=== PATIENT | female | born 1960 | race Caucasian/White ===

== ENCOUNTER → 2023-05-29 08:32 | Outpatient (REF) | payer BC, SELFPAY | LOC: RAD 08:32 | PROVIDERS: ATTENDING PHYSICIAN Internal Medicine Cardiovascular Disease; FAMILY PHYSICIAN Physician Assistant Medical | DX: R06.09 Other forms of dyspnea (principal); R94.31 Abnormal electrocardiogram [ECG] [EKG] | CPT/HCPCS: 76770 ==

== ENCOUNTER → 2023-05-30 07:56 | Outpatient (REF) | payer BC, SELFPAY | LOC: RAD 07:56 | PROVIDERS: ATTENDING PHYSICIAN Internal Medicine Cardiovascular Disease; FAMILY PHYSICIAN Physician Assistant Medical | DX: R06.09 Other forms of dyspnea (principal); R94.31 Abnormal electrocardiogram [ECG] [EKG]; N20.1 Calculus of ureter; I70.1 Atherosclerosis of renal artery | CPT/HCPCS: 93975 ==

== ENCOUNTER 2023-08-31 04:48 | Inpatient (IN) | payer BC, SELFPAY ==
[2023-08-30 15:12] VITALS: BP 174/84
[2023-08-30 15:43] LABS: % Basophils 1.2 % (0-2); % Immature Granulocytes 0.3 % (0-0.5); % Lymphocytes 22.5 % (20.5-51.1); % Monocytes 7.5 % (1.7-9.3); % Neutrophils 68.5 % (42.2-75.2); Absolute Basophils 0.1 10^3/uL (0-0.2); Absolute Lymphocytes 1.4 10^3/uL (1.2-3.4); Absolute Monocytes 0.5 10^3/uL (0.1-0.6); Absolute Neutrophils 4.1 10^3/uL (1.4-6.5); Hematocrit 38.3 % (37.0-47.0); Hemoglobin 13.3 g/dL (12.0-16.0); Mean Corp Hgb Conc. 34.7 g/dL (33.0-37.0); Mean Corpuscular Hgb 29.4 pg (27.0-31.0); Mean Corpuscular Volume 84.7 fL (81.0-99.0); Mean Platelet Volume 9.8 fL (7.4-10.4); Nucleated Red Blood Cells % 0 %; Platelet Count 288 10^3/uL (130-400); Red Blood Cell Count 4.52 10^6/uL (4.20-5.40); Red Cell Dist. Width 12.7 % (11.5-14.5)
[2023-08-30 15:48] LABS: INR 1.05; PT 13.8 Sec (11.4-14.6)
[2023-08-30 15:49] LABS: APTT 27.9 Sec (23.4-35.0)
[2023-08-30 15:58] LABS: ALT (SGPT) 23 U/L (0-35); AST (SGOT) 26 U/L (14-36); Albumin 4.6 g/dl (3.5-5.0); Alkaline Phosphatase 105 U/L (38-126); Blood Urea Nitrogen 18 mg/dl (7-17); Calcium 10.3 mg/dl (8.4-10.2); Carbon Dioxide 23 mmol/L (22-30); Chloride 107 mmol/L (98-107); Glucose 148 mg/dl (70-99); Potassium 4.3 mmol/L (3.5-5.1); Sodium 140 mmol/L (135-145); Total Bilirubin 0.5 mg/dl (0.2-1.3); eGFR > 60.00
--- NOTE | 2023-08-30 21:03 | ED.GENMED ---
History of Present Illness
General
Chief Complaint: Visual Problem
Source: patient
Time Seen by Provider: 08/30/23 20:46
Travel History
Have you had any contact with someone who has COVID-19?: No
Do you have any symptoms of coronavirus? Fever > 100 degrees, chills, cough, shortness of breath, sore throat, loss of taste or smell, muscle aches, or headache?: No
History of Present Illness
History of Present Illness:
63-year-old female presents to the emergency room after being seen by her coordinate measuring equipment operator. Patient went to the coordinate measuring equipment operator because she has noticed some visual changes over the past week. She feels like she was having difficulty walking
seemingly because she was not saying everything normally. In particular she noticed things would pop up into her send vision without seeing them, up from her left side. When symptoms began she did note perhaps some paresthesias of her left lower
extremity but this is gone. She denies headache. She denies any focal weakness. Her speech is normal. Principal Network Architect at Dr. Lay's office noted a left homonymous hemianopsia. Patient states that 5 months ago she was diagnosed with hypertension.
Controlling her blood pressure to be difficult but she states she is currently on 5 medications.
Past History
Past History
ED Past Medical History: Other (Kidney stone)
ED Past Surgical History: Other (Hernia repair)
Social History
Tobacco: Non-smoker
Alcohol: Occasional
Personal:
Living: with family
Family History
Family History: Unable to obtain
Phy Exam
Physical Exam
Physical Exam:
General: Awake, Alert, Oriented X3. No acute distress.
Vitals: unremarkable
Head: Atraumatic
Eyes: Pupils equal, EOMI, left hemianopsia
Throat: Airway intact, no exudates
Neck: Trachea midline
Lungs: Clear and equal b/l
Heart: Regular rate, no murmurs
Abd: Soft, Nontender, No pulsatile mass
Neuro: No facial droop, speech is clear and fluent, muscle strength equal bilaterally, cerebellar exam normal
Skin: Warm, dry, no rash
Extremities: pulses equal b/l, no edema
Course
Orders/Labs/Results
Orders:
Orders
08/30/23 15:18
CT Head W/o Iv Contrast Urgent
Comment:
Reason For Exam: Visual disturbance
08/30/23 15:25
Complete Blood Count/With Diff Urgent
Comprehensive Metabolic Panel Urgent
PTT Urgent
Prothrombin Time Urgent
08/30/23 21:02
EKG [Electrocardiogram (*1)] Urgent
Reason for Study: Vertigo / Dizzy
08/30/23 21:03
EKG- Treatment ONCE
Abnormal Lab Results
08/30/23
15:25
BUN 18 H mg/dl
(7-17)
Glucose 148 H mg/dl
(70-99)
Calcium 10.3 H mg/dl
(8.4-10.2)
08/30/23 15:25
08/30/23 15:25
Vital Signs
Initial and Last Documented VS:
Initial Vital Signs
Temp Pulse Resp BP Pulse Ox
98.6 F 98 20 174/84 96
08/30/23 15:12 08/30/23 15:12 08/30/23 15:12 08/30/23 15:12 08/30/23 15:12
Last Documented Vital Signs
Temp Pulse Resp BP Pulse Ox
98.6 F 80 16 117/65 94
08/30/23 15:12 08/31/23 01:00 08/30/23 23:54 08/31/23 01:00 08/31/23 01:00
MDM/Problems Addressed
Differential Diagnosis Includes:
CVA, mass, AVM
MDM/Problems Addressed:
Patient presents with sudden onset. No other neurologic deficits noted at this time. CT shows an abnormality which will require further evaluation. Discussed findings of CT with neurology who recommends treating patient simply with aspirin at
this time. Further treatment will be based upon MRI which can be obtained tomorrow.
Chronic conditions affecting care: HTN
*Radiology
Radiology exam reviewed: radiology read reviewed
*Pulse Oximetry
Patient hypoxic: no
*EKG
Interpreted by ED Provider?: Yes
Interpretation: normal
Heart Rate: 85
Rate: normal
Rhythm: sinus
[place]: normal axis
Interval: normal interval
QRS Pattern: normal QRS
Ischemia: no ischemia
*Furniture Servicer Interpretation
Rate: normal
Interpretation: normal
Heart Rate: 85
Rhythm: sinus
*Critical Care Note
Total Time (30-74mins, 75-104mins- exclusive of procedures): Not Applicable
ED Attending Note
-
Portions of this chart may have been created with voice recognition software.� Occasional wrong word or��sound alike� substitutions may have occurred due to the inherent limitations of voice recognition software.
Discharge Plan
Departure
Patient Disposition: Admit
Date of Disposition: 08/30/23
Time of Disposition: 22:03
Admit to: Telemetry
Presentation/result/management discussed w/ accepting MD/DO: Hospitalist
Condition: Fair
Discharge Problem:
Left homonymous hemianopsia
Prescriptions:
No Action
amlodipine 5 mg tablet
2.5 mg PO DAILY
spironolactone 25 mg tablet
25 mg PO DAILY
sertraline 25 mg tablet
25 mg PO HS
olmesartan 20 mg tablet
20 mg PO DAILY
nebivolol 5 mg tablet
5 mg PO DAILY
aspirin 325 mg Tablet
325 mg PO Q48H
loratadine [Claritin] 10 mg Tablet
10 mg PO HS
Referrals:
Filomena Nolasco PA [Family Provider] -
Interventions
Interventions:
*Risk Screen - Suicide Last Done: 08/30/23 21:04
*General Assessment Last Done: 08/30/23 21:04
*Neglect/Abuse Screening Last Done: 08/30/23 21:52
ED- Fall Risk Assessment Last Done: 08/30/23 23:58
*ED COVID-19 Vaccine History Last Done: 08/30/23 23:45
ED- Neurological Assessment Last Done: 08/30/23 23:58
ED-EENT Assessment Last Done: 08/30/23 21:03
ED Swallowing Screen Last Done: 08/30/23 21:03
Discharge Date and Time
Print Language: [place]
[2023-08-30 22:25] VITALS: BP 178/91
[2023-08-30 22:48] VITALS: BMI 28.2
[2023-08-30 23:54] VITALS: BP 168/88
[2023-08-31] VITALS (16 sets, daily range): BP systolic 116–171; BP diastolic 64–101; PULSE 72–84; BMI 28.1
--- NOTE | 2023-08-31 00:02 | EDRN ---
Pt has had trouble with her vision x 1 week that has remained constant. Pt says sometimes she gets up and fees 'off balance'. Pt noted occasional tingling around her lips but says that is gone now. Pt saw her collect on delivery clerk and was told to decrease
amlodipine from 5mg daily to 2.5mg daily. Pt noted her bp was in the low 100's at home so she did not take her amlodipine at all for 2 days and took first dose of 2.5 mg , 08/29. Pt went to artificial flowers supervisor for evaluation of persistent visual
change and was sent to the ED. Pt says when she walks with her friends, she noticed someone would 'suddenly appear' in L peripheral vision - she would not see the person until they were almost in front of her. Pt denies headache, speech
disturbance, cp, sob, abd pain, n/v, fever/cough/chills, photophobia.
--- NOTE | 2023-08-31 04:12 | HPS.HSE ---
Family Physician
-
Family Physician: Filomena Nolasco
Chief Complaint
-
Vision change
History of Present Illness
Patient is a 63y F with PMH significant for hypertension who presents to ED complaining of vision changes. Patient states that she initially noted some issues about one week ago. She felt that her vision was subtly changed as if her depth
perception were 'off' or something similar. She had no spots, dots, floaters, etc. She then noted that she would be 'surprised' by objects on her left that seemed to appear suddenly. She had perhaps some mild /intermittent tingling in the L foot.
No other numbness, tingling, focal weakness, ataxia, etc.
No headache. No prior history of similar symptoms.
Patient was seen by Optometry today given her persistent symptoms and was noted to have L homonymous hemianopsia on exam. She was referred to the ED for further evaluation.
Patient is on multiple medications for [id number] hypertension. She takes a full-dose ASA [id number] for arthritis pain.
Patient reports a recent trip to [place], etc - returned to [place] August 08.
Medical History
Past Medical History
Past Medical History: Reports Other
Additional Past Medical History:
Hypertension
Osteoarthritis
Anxiety / Depression
Past Surgical History: Reports Other
Additional Past Surgical History:
Bilateral Inguinal Herniorrhaphies
Lithotripsy
Social History
Tobacco: Non-smoker
Alcohol: Occasional
Drug: None
Family History
Family History: Other (Father: AAA Mother: PBC)
Allergies / Home Medications
Allergies reflects when Allergies were last updated in [employer].
Home Medications with original date entered in [employer]
Allergy/Medication List:
Allergies
Allergy/AdvReac Type Severity Reaction Status Date / Time
Sulfa (Sulfonamide Allergy HIVES,ITCHY Verified 08/30/23 15:15
Antibiotics) RASH
sulfamethoxazole Allergy Rash Verified 08/30/23 15:15
trimethoprim Allergy Rash Verified 08/30/23 15:15
hayfever Allergy stuffy Uncoded 08/30/23 15:15
nose,itchy
eyes
Home Medications
amlodipine 5 mg tablet 2.5 mg PO DAILY 08/30/23
aspirin 325 mg tablet 325 mg PO Q48H 08/30/23
loratadine 10 mg tablet (Claritin) 10 mg PO HS 08/30/23
nebivolol 5 mg tablet 5 mg PO DAILY 08/30/23
olmesartan 20 mg tablet 20 mg PO DAILY 08/30/23
sertraline 25 mg tablet 25 mg PO HS 08/30/23
spironolactone 25 mg tablet 25 mg PO DAILY 08/30/23
Review of Systems
-
History Source: Patient
A 12 point ROS was completed and negative except as noted: Yes
Constitutional: Denies Fever, Fatigue or Chills
EENT: Denies Sore Throat
Respiratory: Denies Cough or Trouble Breathing
Cardiac: Denies Chest Pain or Palpitations
Abdomen/GI: Denies Abdominal Pain, Nausea, Vomiting or Diarrhea
: Denies Dysuria or Frequency
Musculoskeletal: Denies Joint Pain or Edema
Neurological: Reports Numbness and Other (Vision changes); Denies Dizzy, Headache or Weakness
Psych: Denies Depression or Anxiety
Physical Exam
Vital Signs
Vital Signs
Temp Pulse Resp BP Pulse Ox
98.6 F 74 16 131/64 92
08/30/23 15:12 08/31/23 03:00 08/30/23 23:54 08/31/23 03:00 08/31/23 03:00
Physical Exam
General: Other (63y F in no acute distress.)
HEENT: Moist mucous membranes and PERRLA
Respiratory: Clear; No Wheezes, Rales or Rhonchi
Cardiac: S1/S2 and Regular Rhythm; No Murmur
GI: Soft, Non Tender, Non Distended and Normal Bowel Sounds
Musculoskeletal: No Clubbing, No Cyanosis and No Edema
Neuro: AO x 3 and Other (Far L visual field deficit. No other evident abnormalities. Strength equal and symmetric. Sensation otherwise intact.)
Laboratory Results
-
08/30/23 15:25
08/30/23 15:
Laboratory Results
PT 13.8 Sec (11.4-14.6) 08/30/23 15:
INR 1.05 08/30/23:
APTT 27.9 Sec (23.4-35.0) 08/30/23:
Total Bilirubin 0.5 mg/dl (0.2-1.3) 08/30/23:
AST 26 U/L (14-36) 08/30/23:
ALT 23 U/L (0-35) 08/30/23 15:
Alkaline Phosphatase 105 U/L (38-126) 08/30/23 15:25
Impression/Plan
-
A/P: Patient is a 63y F with PMH significant for hypertension who presents to ED complaining of vision changes x 1 week.
Left Homonymous Hemianopsia
CVA
- Admit for further evaluation and treatment.
- CT scan with abnormality in the R occipital region - consistent with L vision deficit.
- ASA + Plavix for now.
- Check AM lipids.
- Monitor for any changes in neuro exam - though current event seems to have occurred a week or so ago.
- MRI in AM for further evaluation.
- Neuro evaluation for additional recommendations.
Hypertension
- Stable at present. Continue current outpatient regimen and adjust as needed.
Anxiety / Depression
- Stable. Continue sertraline.
DVT Prophylaxis: Subcut Heparin
Code Status: Full
[2023-08-31 05:17] LABS: Hemoglobin 12.7 g/dL (12.0-16.0); Mean Corp Hgb Conc. 35.3 g/dL (33.0-37.0); Mean Corpuscular Hgb 30.1 pg (27.0-31.0); Mean Corpuscular Volume 85.3 fL (81.0-99.0); Mean Platelet Volume 9.7 fL (7.4-10.4); Platelet Count 248 10^3/uL (130-400); Red Blood Cell Count 4.22 10^6/uL (4.20-5.40); Red Cell Dist. Width 12.8 % (11.5-14.5)
[2023-08-31 05:53] LABS: Blood Urea Nitrogen 22 mg/dl (7-17); Calcium 9.9 mg/dl (8.4-10.2); Carbon Dioxide 23 mmol/L (22-30); Chloride 109 mmol/L (98-107); Estimated Creatinine Clearance 83 ml/min; Glucose 109 mg/dl (70-99); HDL Cholesterol 50 mg/dl; LDL Cholesterol, Calculated 90 mg/dl; Potassium 4.2 mmol/L (3.5-5.1); Sodium 140 mmol/L (135-145); Total Cholesterol 203 mg/dl (50-199); Triglyceride 315 mg/dl (10-149); Very Low Density Lipoprotein 63 mg/dl (0-30); eGFR > 60.00
[2023-08-31 06:32] LABS: TSH Reflex To Free T4 4.15 uIU/ml (0.47-4.68)
--- NOTE | 2023-08-31 08:02 | CON.NEURO4 ---
Addendum entered and electronically signed by Luis Enrique Ruano MD 08/31/23 11:32:
I saw and evaluate the patient I reviewed note by Tess Keita agree the findings the following comments:
The patient is a 63-year-old right-handed woman with a past medical history of essential hypertension, nephrolithiasis who presents to the hospital after being referred by java j2ee lead due to finding of right-sided visual field deficits. Patient
reports that around 1 week ago she noticed that 1 day her vision seemed to be not normal and she seemed to be missing objects on her left visual hemifield. She did not have any speech difficulty or unusual headaches did possibly note some heaviness
of the left foot. No recent head or neck trauma. No history of TIA or stroke, takes full dose aspirin since April 2023 due to concerns for risk for stroke as well as hypertension.
She reports that maternal and paternal grandparents of stroke in the 50s age range.
Secondhand smoke exposure as a child but never smoker herself occasional social alcohol, she is retired and lives with her .
Neurologic examination remarkable for subtle left-sided superior quadrant tropia, otherwise no neurologic deficits.
CT head noncontrast shows small amount of hypodensity in the right occipital lobe near the right lateral ventricle no hemorrhage.
Assessment: Suspect right sided occipital ischemic stroke given appears sudden onset, family history as well as history of essential hypertension. Neoplasm would also be in the differential diagnosis as CT head would not be sensitive enough to
differentiate these 2 pathologies.
Recommendations
-Continue DAPT therapy, duration will depend on vessel imaging of the head
-Goal normotension
-Neurologic checks and NIH stroke scale
-Lipid panel and hemoglobin A1c
-Check transthoracic echocardiogram given a new neurologic event monitor on cardiac telemetry
-Physical occupational speech therapy evaluations
-DVT prophylaxis
-MRI of the brain with and without contrast, MRA of the head without contrast, MRI of the neck with contrast
Will follow
Original Note:
Documented by User: Tess Dixon NP 08/31/23 10:34
Consultation - Neurology 4
-
CONSULTING PHYSICIAN: Harley Ruano MD
REFERRING PHYSICIAN: Hospitalists/Dr. Hernandez
DICTATED BY: JUANCARLOS Leroy
DATE/TIME OF REQUEST: 08/31/23
DATE/TIME OF CONSULTATION: 08/31/23
Reason for Consultation: CVA
History of Present Illness:
This is a 63-year-old right-handed female who has presented to the hospital on 08/30/23 by referral of her bridges and buildings supervisor with report of a left field cut. Patient reports a recently diagnosis of HTN that has been challenging to control. She first noted
an elevated blood pressure reading of systolic around 169 about one year ago at a gynecology appointment. She was diagnosed with HTN in April 2023 and is now on 4 different blood pressure medications and is followed by Cardiology who did a
complete workup and diagnosed her with essential hypertension. She went on a 6 week trip to [facility], [facility], [facility], and ended in [place] to see the [facility]. She reports having a mild cold towards the end of her vacation in early
July, she did not take a covid test.
About one week ago (08/24/23), patient notes that she woke up one morning and noticed that her depth perception suddenly seemed off. She walks frequently and would notice that people would appear suddenly on her left side, she hadn't noticed them
there. She also notes two instances of feeling that her left foot felt like it was heavy/dragging and one evening she had transient whole mouth lip tingling. Four days ago on 08/27/23 she called Cardiology reporting that she was feeling 'unsteady'
and her amlodipine dosage was decreased from 5mg to 2.5mg. Her symptoms did not improve after this change so she called her ophthalmology office and was evaluated by an bridges and buildings supervisor yesterday (08/30/23), who noted a left-sided field cut and referred
her to the ER. CT Head was obtained on arrival to the ER and demonstrates an attenuation in her right lateral ventricle near her right occipital lobe that is concerning for stroke vs mass. She was not a candidate for TNK/IAT due to outside of time
window. She denies any headache, dizziness, vision changes, speech/swallow difficulty, nausea, chest pain, palpitations, and shortness of breath. She has been taking a full dose aspirin since April 2023 because she was worried about stroke and it
seemed to alleviate her arthritis pain. She denies any history of TIA, stroke, or events similar to this in the past.
Past Medical History: HTN, kidney stone, arthritis, PVCs, fatty liver, anxiety
Surgical History: b/l inguinal hernia repair, lithotripsy
Family History: Maternal and Paternal grandfather- of stroke at 50. Paternal grandmother- stroke age 70. Father- stroke after AAA repair, Afib.
Social History: Former second-hand smoke exposure but was never a smoker herself. Occasional alcohol. Denies illicit drug use. 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
Allergies: Sulfa, trimethoprim, hayfever.
Home Medications: See below.
Review of Symptoms:
Patient denies any fever, headache, chest pain, shortness of breath, GI or symptoms.
�Per the HPI.�All systems are reviewed negative except above.
Physical Exam:
The patient is afebrile, abdomen is nondistended, breathing is unlabored, skin is warm and dry, no edema.
NIH Stroke Scale:
I performed the NIH stroke scale on the patient on 08/31/23 at 0830. The patient scored 1 points on the NIH stroke scale assessment, which were assigned as follows: See below.
Neurologic Examination:
The patient is awake, alert and oriented x 3. She is able to follow commands and answer questions appropriately. There is no aphasia or dysarthria. On cranial nerve assessment, pupils are 3 mm bilateral, round and reactive to light and
accommodation. Visual fraire are mildly reduced in bilateral LUQ. Extraocular movements are intact. Facial sensations are intact and bilaterally symmetrical, there is no facial asymmetry. Hearing is intact bilaterally to normal conversation volume.
Tongue palate and uvula are midline. Sternocleidomastoid strengths are full bilaterally. Motor strengths are 5/5 bilateral upper and lower extremities on medical research [place] scale. There is no drift or involuntary movement noted. Deep tendon
reflexes are 2+ bilateral upper and lower extremities and Babinski is absent bilaterally. Sensations of touch, temperature and vibration are intact and bilaterally symmetrical. There was no extinction noted on double simultaneous stimulation.
Coordination is intact by finger to nose bilaterally.
Lab Results: See below.
Neuro Imaging:
1. CT Head 08/30/23: No acute intracranial hemorrhage or mass effect. Small, 6 mm focus of white matter diminished attenuation adjacent to the posterior margin of the right lateral ventricle in the occipital region, possibly associated with minor
adjacent subtle confluent white matter edema. Exact etiology uncertain. Further evaluation/characterization would be recommended with nonemergent follow-up MRI. High attenuation likely chronic inspissated secretions in the left frontal and anterior
ethmoid air cells. Posterior left ethmoid air cell opacification.
Differentials for the patient's presentation include:
1. Subacute right occipital ischemic stroke likely producing LUQ field cut.
2. Brain mass possible but less likely.
3. HTN
4. Prediabetes
Patient has the following risk factors for their symptoms: HTN, family history of stroke
IV Tenecteplase/IAT candidacy: She is not a candidate for TNK/IAT due to outside of time window.
Recommendations:
-Continue DAPT with aspirin 81mg and Plavix 75mg x21 days. After 21 days, will discontinue Plavix and continue aspirin 81mg daily only.
-MRI brain w/and w/o contrast ordered/pending.
-MRA head/neck ordered/pending.
-Monitor on telemetry. TTE ordered/pending.
-Goal normotension.
-LDL goal <70 if MRI brain demonstrates a stroke. LDL is 90.
-Goal normoglycemia, hbA1c is 6.0.
-PT/OT/ST evaluations.
-DVT prophylaxis.
-Will need clearance from ophthalmology to return to driving.
-Will follow pending results.
Discussed patient care with: Dr. Ruano, the patient
Vital Signs and Labs
-
Vital Signs and Labs:
Vital Signs
Temp Pulse Resp BP Pulse Ox
98.1 F 80 14 141/90 96
08/31/23 08:57 08/31/23 09:17 08/31/23 09:00 08/31/23 09:17 08/31/23 09:00
Lab Results
08/31/23 05:01
08/31/23 05:01
PT 13.8 Sec (11.4-14.6) 08/30/23 15:25
INR 1.05 08/30/23 15:25
APTT 27.9 Sec (23.4-35.0) 08/30/23 15:25
Sodium 140 mmol/L (135-145) 08/31/23 05:01
Potassium 4.2 mmol/L (3.5-5.1) 08/31/23 05:01
BUN 22 mg/dl (7-17) H 08/31/23 05:01
Glucose 109 mg/dl (70-99) H 08/31/23 05:01
Calcium 9.9 mg/dl (8.4-10.2) 08/31/23 05:01
LDL Cholesterol, Calc 90 mg/dl 08/31/23 05:01
Medications
-
Active Medications
Generic Name Dose Route Start Last Admin
Trade Name Freq PRN Reason Stop Dose Admin
Acetaminophen 650 mg 08/31/23 04:52
Acetaminophen 325 Mg Tablet PO 09/28/23 04:51
Q4HPRN PRN
mild pain/SILVERIO/temp> 100.4F
Amlodipine Besylate 2.5 mg 08/31/23 08:00 08/31/23 09:17
Amlodipine 5 Mg Tablet PO 09/28/23 07:59 2.5 mg
DAILY SARAVANAN Administration
Aspirin 81 mg 08/31/23 08:00 08/31/23 09:17
Aspirin 81 Mg Chewable Tablet PO 09/28/23 07:59 81 mg
DAILY SARAVANAN Administration
Clopidogrel Bisulfate 75 mg 08/31/23 08:00 08/31/23 09:18
Clopidogrel 75 Mg Tablet PO 09/28/23 07:59 75 mg
DAILY SARAVANAN Administration
Heparin Sodium 5,000 units 08/31/23 08:00 08/31/23 09:17
Heparin 5,000 Units/Ml 1 Ml Vial SC 09/28/23 07:59 5,000 units
Q8 SARAVANAN Administration
Hydralazine HCl 5 mg 08/31/23 04:52
Hydralazine 20 Mg/Ml Vial IV 09/28/23 04:51
Q6HPRN PRN
SBP > 180
Lorazepam 0.5 mg 08/31/23 08:34
Lorazepam 2 Mg/Ml Vial IV 08/31/23 18:00
PRN PRN
FOR MRI
Nebivolol 5 mg 08/31/23 08:00
Nebivolol Hcl 2.5 Mg Tablet PO 09/28/23 07:59
DAILY SARAVANAN
Olmesartan 20 mg 08/31/23 08:00
Olmesartan 20 Mg Tablet PO 09/28/23 07:59
DAILY SARAVANAN
Sertraline HCl 25 mg 08/31/23 22:00
Sertraline 25 Mg Tablet PO 09/28/23 21:59
HS SARAVANAN
Sodium Chloride 0 flush 08/31/23 05:00
Sodium Chloride 0.9% (Flush) Syringe IV 09/28/23 04:59
PER PROTOCOL SARAVANAN
Sodium Chloride 0.25 ml 08/31/23 08:44
Nss (Pf) 10 Ml Vial For Ativan 0.5 Mg Dose IV 08/31/23 18:00
PRN PRN
IV LORAZEPAM DILUTION
Spironolactone 25 mg 08/31/23 08:00 08/31/23 09:16
Spironolactone 25 Mg Tablet PO 09/28/23 07:59 25 mg
DAILY SARAVANAN Administration
Home Medications
�Medication �Instructions �Recorded
amlodipine 5 mg tablet 2.5 mg PO DAILY 08/30/23
aspirin 325 mg tablet 325 mg PO Q48H 08/30/23
loratadine 10 mg tablet (Claritin) 10 mg PO HS 08/30/23
nebivolol 5 mg tablet 5 mg PO DAILY 08/30/23
olmesartan 20 mg tablet 20 mg PO DAILY 08/30/23
sertraline 25 mg tablet 25 mg PO HS 08/30/23
spironolactone 25 mg tablet 25 mg PO DAILY 08/30/23
NIH Stroke Score
Subsequent NIH Scale
Date of Subsequent NIH Scale: 08/31/23
Time of Subsequent NIH Scale: 08:30
NIH Stroke Score
Level of Consciousness: 0 - Alert
LOC Questions: 0-Answers both correctly
LOC Commands: 0-Performs both correctly
Best Horizontal Gaze: 0-Normal
Visual Fraire: 1=Partial hemianopia
Facial Palsy: 0=Normal, symmetrical
Motor - Right Arm: 0=No drift 10 seconds
Motor - Left Arm: 0=No drift 10 seconds
Motor - Right Le-No drift 5 seconds
Motor - Left Le-No drift 5 seconds
Limb Ataxia: 0-Absent
Sensation: 0-Normal
Best Language: 0-No aphasia
Dysarthria: 0-Normal
Extinction and Inattention: 0-No abnormality
Total Score:: 1
Modified Ord (mRS) Score
Modified Ord Scale (mRS): No significant disability. Able to carry out usual activities.
Score: 1

Documented by User: Luis Enrique Ruano MD 08/31/23 11:29
NIH Stroke Score
NIH Stroke Score
Total Score:: 1
Modified Ord (mRS) Score
Score: 1
[2023-08-31] MEDS: ALDACTONE 25 MG PO (09:16)
[2023-08-31] MEDS: HEPARIN 5000 UNITS SC ×3 (09:17→23:00)
[2023-08-31] MEDS: LOW STRENGTH ASPIRIN 81 MG PO (09:17)
[2023-08-31] MEDS: NORVASC 2.5 MG PO (09:17)
[2023-08-31] MEDS: PLAVIX 75 MG PO (09:18)
[2023-08-31 10:23] LABS: Folate 15.7 ng/ml (2.76-20); Vitamin B12 384 pg/ml (239-931)
--- NOTE | 2023-08-31 10:25 | PTOTSP ---
Patient demonstrates safe and independent mobility, no skilled physical therapy needs at this time.
[2023-08-31] MEDS: BYSTOLIC 5 MG PO (11:56)
[2023-08-31] MEDS: BENICAR 20 MG PO (11:58)
--- NOTE | 2023-08-31 14:00 | PTCARENOTE ---
Received patient from ED via stretcher. AAOx3, ambulated to bed without assistance. photographic equipment assembler reading NSR. Assessed and oriented to room. Call lares in close reach.
[2023-08-31] MEDS: ATIVAN 0.5 MG IV (14:46)
[2023-08-31] MEDS: NSS (PRESERVATIVE FREE) 0.25 ML IV (14:46)
--- NOTE | 2023-08-31 18:21 | CM ---
met with patient and her estrellita .patient lives in house with 2 steps to enter,her bed and bath is oh the second level,she is i amb and with bathing.she sees a on air director for her pcp and uses [facility] in [place].patient has never had a vn
or been ip rehab.
she is adm with left eye problem to ro cva.she had an mri brain,mra of head and neck.patien tis on heparin and plavix.she was seen by therapy and is totally I.she will have no needs when dc home.Plan home with no needs.
[2023-08-31] MEDS: ZOLOFT 25 MG PO (20:48)
[2023-08-31] MEDS: LIPITOR 40 MG PO (20:48)
[2023-08-31] MEDS: CLARITIN 10 MG PO (21:25)
[2023-09-01 03:26] VITALS: BP 97/63
[2023-09-01 05:53] VITALS: BMI 27.9
[2023-09-01 07:30] VITALS: BP 101/67; BP 104/67; BP 115/62; PULSE 68; PULSE 75; PULSE 76
[2023-09-01] MEDS: NORVASC 2.5 MG PO (08:40)
[2023-09-01] MEDS: VITAMIN B-12 1000 MCG PO (08:40)
[2023-09-01] MEDS: PLAVIX 75 MG PO (08:40)
[2023-09-01] MEDS: BENICAR 20 MG PO (08:40)
[2023-09-01] MEDS: HEPARIN 5000 UNITS SC (08:41)
[2023-09-01] MEDS: ALDACTONE 25 MG PO (08:41)
[2023-09-01] MEDS: LOW STRENGTH ASPIRIN 81 MG PO (08:41)
[2023-09-01] MEDS: BYSTOLIC 5 MG PO (08:41)
--- NOTE | 2023-09-01 08:46 | W.PN.NEURO.1 ---
Addendum entered and electronically signed by Brandon Edwards MD 09/01/23 10:42:
Increase Atorvastatin from 40 to 80 mg due to LDL > 70
Original Note:
Today's Communication / Plan
-
Continue DAPT therapy duration of 21 days with permanent use of daily 81 mg aspirin
Goal normotension
Check transesophageal echocardiogram which may take place as outpatient
Hypercoagulable evaluation as outpatient, preferably 6 weeks after onset of symptoms meaning after first week in September 2023
Neuro Assessment/Plan
Assessment
Assessment: right sided occipital acute ischemic stroke
Plan
Recommendations
Continue DAPT therapy duration of 21 days with permanent use of daily 81 mg aspirin
Goal normotension
Check transesophageal echocardiogram which may take place as outpatient
Hypercoagulable evaluation as outpatient, preferably 6 weeks after onset of symptoms meaning after first week in September 2023
Physical occupational speech therapy
DVT prophylaxis
Will follow as outpatient.
Subjective/Objective
Subjective Data
Date of Service: September 01, 2023
No new symptoms.
Objective Data
Vital Signs
Temp Pulse Resp BP Pulse Ox
36.6 C 73 16 97/63 93
09/01/23 03:26 09/01/23 03:26 09/01/23 03:26 09/01/23 03:26 09/01/23 03:26
Lab Results
08/31/23 05:01
08/31/23 05:01
PT 13.8 Sec (11.4-14.6) 08/30/23 15:25
INR 1.05 08/30/23 15:25
APTT 27.9 Sec (23.4-35.0) 08/30/23 15:25
Sodium 140 mmol/L (135-145) 08/31/23 05:01
Potassium 4.2 mmol/L (3.5-5.1) 08/31/23 05:01
BUN 22 mg/dl (7-17) H 08/31/23 05:01
Glucose 109 mg/dl (70-99) H 08/31/23 05:01
Calcium 9.9 mg/dl (8.4-10.2) 08/31/23 05:01
LDL Cholesterol, Calc 90 mg/dl 08/31/23 05:01
Vitamin B12 384 pg/ml (239-931) 08/31/23 05:01
Patient Allergies
Sulfa (Sulfonamide Antibiotics) Allergy (Verified 08/30/23 15:15)
HIVES,ITCHY RASH
sulfamethoxazole Allergy (Verified 08/30/23 15:15)
Rash
trimethoprim Allergy (Verified 08/30/23 15:15)
Rash
hayfever Allergy (Uncoded 08/30/23 15:15)
stuffy nose,itchy eyes
Review of Systems
-
History Source: Patient
All other systems: Reviewed and negative
Physical Exam
-
General: No Apparent Distress and Appears Stated Age
Eyes: Round OU, [place] Conjunctivae and No Ptosis
HEENT: Anicteric and Moist Mucous Membranes
Neck: Full Range of Motion
Respiratory: No Dyspnea
Cardiac: No JVD
GI: Non-distended
Skin: Unremarkable
Extremities: No Clubbing, No Cyanosis and No Edema
Psych: Intact Judgement/Insight
Extended Neurological Exam
Mood & Affect: Mood Unremarkable and Affect Unremarkable
Attention Span & Concentration: Awake, Alert and Interactive
Memory: Unremarkable
Tremor: Hand Tremor Absent and Head Tremor Absent
Speech: Quality Unremarkable and Quantity Unremarkable
Cranial Nerve II: Left Eye: Pupillary Size Unremarkable
Cranial Nerve II: Right Eye: Pupillary Size Unremarkable
Cranial Nerves III, IV, : Extraocular Movement: Grossly Intact
Cranial Nerve VII: Facial Symmetry: Normal Facial Symmetry
Cranial Nerve VIII: Hearing: Unremarkable Hearing to Normal Conversational Volume
Cranial Nerve XI: Shoulder Shrug: Unremarkable
Muscle Strength, Overall: Full Throughout
Muscle Bulk & Tone: Bulk Unremarkable and Tone Unremarkable
Touch Sensation: Unremarkable
Coordination: [id number] Testing Unremarkable
Data Reviewed
-
MRI Head: Report Reviewed and Image Reviewed
Echocardiogram: Report Reviewed
Labs: Report Reviewed
Reviewed with: Physician, Nurse and Patient
Old Records: Summarized
Past History
Past History
ED Past Medical History: CVA and Other (Kidney stone)
ED Past Surgical History: Other (Hernia repair)
Social History
Tobacco: Non-smoker
Alcohol: Occasional
Personal:
Living: with family
Family History
Family History: Unable to obtain
Medications
-
Medications:
Generic Name Dose Route Start Last Admin
Trade Name Freq PRN Reason Stop Dose Admin
Acetaminophen 650 mg 08/31/23 04:52
Acetaminophen 325 Mg Tablet PO 09/28/23 04:51
Q4HPRN PRN
mild pain/SILVERIO/temp> 100.4F
Amlodipine Besylate 2.5 mg 08/31/23 08:00 09/01/23 08:40
Amlodipine 5 Mg Tablet PO 09/28/23 07:59 2.5 mg
DAILY SARAVANAN Administration
Aspirin 81 mg 08/31/23 08:00 09/01/23 08:41
Aspirin 81 Mg Chewable Tablet PO 09/28/23 07:59 81 mg
DAILY SARAVANAN Administration
Atorvastatin Calcium 40 mg 08/31/23 21:00 08/31/23 20:48
Atorvastatin (Lipitor) 40 Mg Tablet PO 09/28/23 20:59 40 mg
QPM SARAVANAN Administration
Clopidogrel Bisulfate 75 mg 08/31/23 08:00 09/01/23 08:40
Clopidogrel 75 Mg Tablet PO 09/28/23 07:59 75 mg
DAILY SARAVANAN Administration
Cyanocobalamin 1,000 mcg 09/01/23 08:00 09/01/23 08:40
Cyanocobalamin 1,000 Mcg Tablet PO 09/29/23 07:59 1,000 mcg
DAILY SARAVANAN Administration
Heparin Sodium 5,000 units 08/31/23 08:00 09/01/23 08:41
Heparin 5,000 Units/Ml 1 Ml Vial SC 09/28/23 07:59 5,000 units
Q8 SARAVANAN Administration
Hydralazine HCl 5 mg 08/31/23 04:52
Hydralazine 20 Mg/Ml Vial IV 09/28/23 04:51
Q6HPRN PRN
SBP > 180
Nebivolol 5 mg 08/31/23 08:00 09/01/23 08:41
Nebivolol Hcl 2.5 Mg Tablet PO 09/28/23 07:59 5 mg
DAILY SARAVANAN Administration
Olmesartan 20 mg 08/31/23 08:00 09/01/23 08:40
Olmesartan 20 Mg Tablet PO 09/28/23 07:59 20 mg
DAILY SARAVANAN Administration
Sertraline HCl 25 mg 08/31/23 22:00 08/31/23 20:48
Sertraline 25 Mg Tablet PO 09/28/23 21:59 25 mg
HS SARAVANAN Administration
Sodium Chloride 0 flush 08/31/23 05:00
Sodium Chloride 0.9% (Flush) Syringe IV 09/28/23 04:59
PER PROTOCOL SARAVANAN
Spironolactone 25 mg 08/31/23 08:00 09/01/23 08:41
Spironolactone 25 Mg Tablet PO 09/28/23 07:59 25 mg
DAILY SARAVANAN Administration
[2023-09-01 11:40] VITALS: BP 153/85
[2023-09-01 13:21] LABS: Erythrocyte Sed Rate 21 mm/hour (0-20)
[2023-09-01 13:26] LABS: C-Reactive Protein < 5.00 mg/L (0.0-10.00)
--- NOTE | 2023-09-01 13:34 | W.PN.HOSP.TC ---
Today's Communication/Plan
-
d/c home
Assessment / Plan
Assessment / Plan
MRI brain
1. Large number of ACUTE ISCHEMIC INFARCTS in the medial right occipital lobe and posteromedial right temporal lobe. 7.8 mm acute ischemic infarct in the right side of the splenium of the corpus callosum. 6.8 mm acute ischemic infarct in the right
thalamus. The findings are secondary to ACUTE RIGHT POSTERIOR CEREBRAL ARTERY OCCLUSION.
2. Mild white matter leukoaraiosis in the left frontal lobe and right parietal lobe.
3. Severe left frontal sinusitis.
MRA H&N
1. 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
2. No MRA evidence for vertebral artery stenosis or occlusion.
3. No MRA evidence for internal carotid artery stenosis or occlusion.

1. Right occipital/posterior medial temporal lobe CVA
-Patient complaining of peripheral vision changes. no scotoma/no cut in visual [place]
-MRI brain showing diffuse scattered stroke involving posterior medial right temporal lobe/right thalamus
-MRA head and neck showing right posterior cerebral artery P2 segment complete occlusion
-Non bubble echocardiogram did not show any acute abnormality.
-Neurology evaluated recommended aspirin and Plavix for 21 days followed by aspirin lifelong
-Lipid profile reviewed, patient started on Lipitor 40 mg every afternoon
-Patient will require outpatient hypercoagulable workup
-Patient to follow-up with cardiology in office for evaluation for Linq placement
2. Prediabetic
-Hemoglobin A1c of 6
-Discussed weight loss/diet changes
-Patient will follow-up with primary care physician for further discussion of initiation of medication
3. Essential Hypertension
Patient blood pressure well-controlled today. Continue home regimen
4. Anxiety / Depression
- Stable. Continue sertraline.
DVT Prophylaxis: Subcut Heparin
Code Status: Full
Case plan discussed with patient primary ur coordinator and neurologist
More than 30 minutes spent in discharge including
Final examination of the patient
Summarizing hospital stay
Instructions for continuing care to all relevant caregivers
Preparation of discharge records, prescriptions, and referral forms
Total time spent (in minutes): 38 mins
Anticipated Discharge: Today
Subjective/Interval History
-
Date of Service: September 01, 2023
some peripheral vision decrease
No focal neurological deficit
No other issues overnight
Objective Data
-
Vital Signs:
Vital Signs
Temp Pulse Resp BP Pulse Ox
97.9 F 73 16 153/85 95
09/01/23 11:40 09/01/23 11:40 09/01/23 11:40 09/01/23 11:40 09/01/23 11:40
I&O
08/31/23 09/01/23 09/02/23
06:59 06:59 06:59
Intake Total 1120 / 1120
Balance 1120 / 1120
Review of Systems
-
Respiratory: Reports No Symptoms
Cardiac: Reports No Symptoms
Abdomen/GI: Reports No Symptoms
Physical Exam
-
General: No Apparent Distress and Comfortable
HEENT: Negative Oxygen
Respiratory: Clear to Auscultation
Cardiac: Regular Rhythm and S1/S2; Negative Murmur or Rub
GI: Soft and Nontender
Musculoskeletal: No Edema
Neuro: Awake, Alert, Oriented, No Motor Deficits and Nonfocal/Grossly Intact
Psych: Calm
--- NOTE | 2023-09-01 15:04 | CM ---
Patient with Dx CVA. PT & OT Evals; No skilled PT/OT needed.
Spoke with patient who was preparing for d/c. The patient says she feels ready to go home today. Her family will provide transport home today.
No CM d/c needs identified.
Plan home today.
[2023-09-01 15:57] VITALS: BP 138/76
--- NOTE | 2023-09-02 08:07 | W.DCSUMMARY ---
Discharge Summary
Discharge Data
Date of Admission: 08/31/23
Date of Discharge: 09/01/23
-
Pending Results: No
Hospital Course
Discharging Physician : Dr Shahbaz Alejo
Disposition : To home
Primary care physician : Dr Filomena Nolasco
Principal Discharge diagnosis :
Right occipital/posterior medial temporal lobe stroke
Prediabetes
Chronic Discharge diagnosis :
Essential hypertension
Anxiety/depression
Hyperlipidemia
Hospital Course :
Patient is a 63-year-old female with mentioned past medical history came to ER for having new onset of vision changes. Patient initially symptoms for approximately 1 week back with her depth perception being off, no reported scotoma/floaters. Some
minimal left foot tingling/sensation change also noted. In ER patient had a CT head which did not show any acute abnormality. Neurology was involved in care and patient had follow-up MRI brain and MRA head and neck done. MRI brain showed
scattered stroke in the right occipital and right posterior medial temporal lobe with involvement of thalamus as well. MRI head showing occlusion of P2 segment of right posterior cerebral artery. Patient noted to be prediabetic with hemoglobin A1c
of 6 and having borderline elevated cholesterol for which patient was started on Lipitor. Patient care was discussed with primary senior net developer also recommended possible Linq placement although patient preferred to have this done outpatient.
Patient will eventually require hypercoagulable workup as well. Neurology recommended patient to be maintained on aspirin and Plavix for 21 days followed by aspirin lifelong. Patient was cleared by physical therapy for home level care and was
discharged home.
Important imaging findings :
MRI brain
1. Large number of ACUTE ISCHEMIC INFARCTS in the medial right occipital lobe and posteromedial right temporal lobe. 7.8 mm acute ischemic infarct in the right side of the splenium of the corpus callosum. 6.8 mm acute ischemic infarct in the right
thalamus. The findings are secondary to ACUTE RIGHT POSTERIOR CEREBRAL ARTERY OCCLUSION.
2. Mild white matter leukoaraiosis in the left frontal lobe and right parietal lobe.
3. Severe left frontal sinusitis.
MRA H&N
1. 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
2. No MRA evidence for vertebral artery stenosis or occlusion.
3. No MRA evidence for internal carotid artery stenosis or occlusion.
Procedure findings :
None
Discharge Plan
-
Patient Disposition: Home (Routine Discharge)
Discharge Diagnosis/Procedures: Right Posterior Cerebral art area stroke, Pre-diabetes, Hyperlipidemia
Condition: Fair
Diet: Low Cholesterol and Diabetic, Carb Controlled
Activity: As tolerated
Driving Restrictions: No driving for 24 hours
Bathing Restrictions: OK to Shower
Instructions: Diabetes and diet
Referrals:
Filomena Nolasco PA [Family Provider] - in one week
Dolly Purcell DO [Active] -
Prescriptions:
New
atorvastatin 40 mg Tablet
40 mg PO QPM Qty: 30 2RF
clopidogrel 75 mg Tablet
75 mg PO DAILY Qty: 20 0RF
Rx Instructions:
TAKE FOR 20 DAYS AND THEN STOP
aspirin [Children's Aspirin] 81 mg Tablet,Chewable
81 mg PO DAILY Qty: 30 0RF
Continued
amlodipine 5 mg tablet
2.5 mg PO DAILY
spironolactone 25 mg tablet
25 mg PO DAILY
sertraline 25 mg tablet
25 mg PO HS
olmesartan 20 mg tablet
20 mg PO DAILY
nebivolol 5 mg tablet
5 mg PO DAILY
loratadine [Claritin] 10 mg Tablet
10 mg PO HS
Discontinued
aspirin 325 mg Tablet
325 mg PO Q48H
Discharge Orders:
Discharge Patient (As Directed); Ordered 09/01/23
Ordered By: Shahbaz Alejo
Discharge Date and Time
Discharge Date/Time: 09/01/23 16:15
Print Language: SETSWANA
[2023-09-03 16:26] LABS: Lyme Antibody Screen, EIA Negative (Negative)
== END 2023-09-01 16:15 | disposition home or self-care (01) | DRG 66 ==
LOC: 4 EAST ACU 04:48
PROVIDERS: Emergency Medicine; Psychiatry & Neurology Neurology; ADMITTING PHYSICIAN Hospitalist; ATTENDING PHYSICIAN Hospitalist; CONSULT PHYSICIAN Student in an Organized Health Care Education/Training Program; EMERGENCY PHYSICIAN Emergency Medicine; FAMILY PHYSICIAN Physician Assistant Medical
DX: I63.9 Cerebral infarction, unspecified (principal); H53.462 Homonymous bilateral field defects, left side; I10 Essential (primary) hypertension; F32.A Depression, unspecified; F41.9 Anxiety disorder, unspecified; E78.00 Pure hypercholesterolemia, unspecified; J32.1 Chronic frontal sinusitis; I66.21 Occlusion and stenosis of right posterior cerebral artery
CPT/HCPCS: 93308; 70450; 70544; 70548; 70553; 80048; 80053; 80061; 82607; 82728; 82746; 83036; 84443; 85025; 85027; 85610; 85652; 85730; 86140; 86618; 93005; 93321; 93325; 99285; A9585

== ENCOUNTER → 2023-09-03 13:45 | Outpatient (REF) | payer BC, SELFPAY | LOC: RAD 13:45 | PROVIDERS: ATTENDING PHYSICIAN Internal Medicine Cardiovascular Disease; FAMILY PHYSICIAN Physician Assistant Medical | DX: M79.605 Pain in left leg (principal); R06.09 Other forms of dyspnea; I82.402 Acute embolism and thrombosis of unspecified deep veins of left lower extremity | CPT/HCPCS: 93971 ==

== ENCOUNTER 2023-11-23 06:51 | Day surgery (SDC) | payer BC, SELFPAY ==
[2023-11-23 07:56] LABS: Glucose - Point of Care 103 mg/dl (70-99)
== END 2023-11-23 08:45 | disposition home or self-care (01) ==
LOC: CATH 06:51
PROVIDERS: ATTENDING PHYSICIAN Internal Medicine Cardiovascular Disease; FAMILY PHYSICIAN Physician Assistant Medical; OTHER PHYSICIAN Internal Medicine Cardiovascular Disease
DX: I08.1 Rheumatic disorders of both mitral and tricuspid valves (principal); I10 Essential (primary) hypertension; Z86.73 Personal history of transient ischemic attack (TIA), and cerebral infarction without residual deficits
CPT/HCPCS: 93312; 93320; 93325; 82962

== ENCOUNTER → 2024-02-13 08:42 | Outpatient (REF) | payer BC, SELFPAY | LOC: WDC 08:42 | PROVIDERS: ATTENDING PHYSICIAN Physician Assistant Medical | DX: Z12.31 Encounter for screening mammogram for malignant neoplasm of breast (principal) | CPT/HCPCS: 77063; 77067 ==

== ENCOUNTER → 2024-04-15 08:01 | Outpatient (REF) | payer BC, SELFPAY | LOC: RAD 08:01 | PROVIDERS: ATTENDING PHYSICIAN Specialist; FAMILY PHYSICIAN Physician Assistant Medical; OTHER PHYSICIAN Internal Medicine Cardiovascular Disease | DX: I10 Essential (primary) hypertension (principal); E78.5 Hyperlipidemia, unspecified; N20.0 Calculus of kidney | CPT/HCPCS: 74170; Q9967 ==

== ENCOUNTER → 2025-03-02 15:29 | Outpatient (REF) | payer BC, SELFPAY | LOC: WDC 15:29 | PROVIDERS: ATTENDING PHYSICIAN Obstetrics & Gynecology; FAMILY PHYSICIAN Physician Assistant Medical | DX: Z12.31 Encounter for screening mammogram for malignant neoplasm of breast (principal) | CPT/HCPCS: 77063; 77067 ==